=== PATIENT | female | born 1985 | race Caucasian/White ===

== ENCOUNTER 2017-09-29 21:44 | Emergency (ER) | payer BC, OTHER ==
[2017-09-29 21:47] VITALS: BMI 27.3
[2017-09-29 21:49] VITALS: BP 111/59; PULSE 67; TEMP 98
[2017-09-29 21:53] VITALS: RESP 17; O2SAT 98
[2017-09-29] MEDS ORDERED: Amoxicillin-Clav 875-125 mg Tab PO STA (22:18)
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
== END 2017-09-29 23:05 | disposition home or self-care (01) ==
LOC: ED 21:44
DX: K11.20 Sialoadenitis, unspecified (principal)
CPT/HCPCS: 96372; 99282; J1885

== ENCOUNTER 2018-02-14 22:55 | Observation (INO) | payer BC ==
[2018-02-14 22:55] VITALS: BMI 27.3
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
[2018-02-14] MEDS ORDERED: Glucagon Recombinant 1 mg Inj IV STA (23:46)
[2018-02-15 00:20] LABS: HEMOGLOBIN 12.6 g/dL (12.0-16.0); MEAN CELL VOLUME 89.6 fl (80.0-105.0); MEAN CORPUSCULAR HEMOGLOBIN 29.6 pg (25.0-35.0); MEAN CORPUSCULAR HGB CONC 33.1 g/dl (31.0-37.0); MEAN PLATELET VOLUME 10.2 fl (7.0-11.0); RBC 4.25 10^6/uL (3.5-6.1); RED CELL DISTRIBUTION WIDTH 13.4 % (11.5-14.5); WHITE BLOOD COUNT 7.4 10^3/ul (4.5-11.0)
[2018-02-15 00:33] LABS: ALB/GLOB RATIO 1.3 (1.1-1.8); CALCIUM 9.2 mg/dL (8.4-10.5)
--- NOTE | 2018-02-15 02:21 | CT ---
EXAM: CT Chest Without Intravenous Contrast EXAM DATE/TIME: 02/14/2018 11:51 PM CLINICAL HISTORY: The patient age is 32 years old and is female; Signs and symptoms; Shortness of breath; Additional info: R/O food impaction Facility exam id and description: Ct chests chest w/o contrast TECHNIQUE: Axial computed tomography images of the chest without intravenous contrast. All CT scans at this facility use one or more dose reduction techniques, viz.: automated exposure control; ma/kV adjustment per patient size (including targeted exams where dose is matched to indication; i.e. head); or iterative reconstruction technique. Coronal and sagittal reformatted images were created and reviewed. COMPARISON: No relevant prior studies available. FINDINGS: Lungs: There is biapical parenchymal scarring. Otherwise, there is no confluent infiltrate. Within the right middle lobe, there is a sheridan-fissural nodule measuring 6 mm on series 4 image 64. Pleural space: No pneumothorax. No significant effusion. Heart: There is mild cardiomegaly. There is a small herniation of abdominal fat into the region of the pericardial fat anteriorly. Fluid is seen in the superior pericardial recesses. Mediastinum: There is a small hiatal hernia. Bones/joints: Mild degenerative changes are identified within the thoracic spine. Vasculature: No thoracic aortic aneurysm. Lymph nodes: Scattered mediastinal lymph nodes are identified, a few which are enlarged. One of the enlarged lymph nodes is identified within the superior mediastinum measuring 1.3 x 1.1 cm. These lymph nodes are nonspecific as to etiology. Evaluation of hilar lymph nodes is limited by the absence of intravenous contrast. IMPRESSION: 1. There is biapical parenchymal scarring. Otherwise, there is no confluent infiltrate. 2. Within the right middle lobe, there is a sheridan-fissural nodule measuring 6 mm. A follow-up CT in 12 months is recommended. 3. There is a small hiatal hernia. 4. There is mild cardiomegaly. 5. Scattered mediastinal lymph nodes are identified, a few which are enlarged. These lymph nodes are nonspecific as to etiology. 6. Additional CT findings described above.
--- NOTE | 2018-02-15 02:27 | CT ---
EXAM: CT Neck Without Intravenous Contrast EXAM DATE/TIME: 02/14/2018 11:48 PM CLINICAL HISTORY: The patient age is 32 years old and is female; Signs and symptoms; Dyspnea / difficulty breathing; Additional info: Food impaction Facility exam id and description: Ct necks neck soft tissue w/o contrast TECHNIQUE: Axial computed tomography images of the neck without intravenous contrast. All CT scans at this facility use one or more dose reduction techniques, viz.: automated exposure control; ma/kV adjustment per patient size (including targeted exams where dose is matched to indication; i.e. head); or iterative reconstruction technique. Coronal and sagittal reformatted images were created and reviewed. COMPARISON: No relevant prior studies available. FINDINGS: Oropharynx: No significant tonsillar enlargement. Hypopharynx: No acute abnormality. Larynx: Normal epiglottis. Trachea: No acute abnormality. Retropharyngeal space: No acute abnormality. Submandibular/parotid glands: Glands are normal in size. Thyroid: No enlarged or calcified nodules. Bones/joints: There is mild reversal of the lordotic curvature of the cervical spine. Spondylosis is visualized at C5-6 and C6-7. Soft tissues: No significant swelling of the soft tissues of the neck. Vasculature: Limited evaluation without intravenous contrast. Lymph nodes: Scattered small cervical lymph nodes are identified, without significant cervical lymphadenopathy. Lung apices: Unremarkable as visualized. IMPRESSION: 1. No acute abnormality on this noncontrast CT neck. 2. Incidental/non-acute findings are described above.
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
[2018-02-15] MEDS ORDERED: Sodium Chloride 0.9% 1,000 ML IV SCH (04:45)
[2018-02-15 08:32] LABS: BASO # 0.02 K/mm3 (0.0-2.0); BASO % 0.3 % (0.0-3.0); EOS # 0.2 (0.0-0.7); GRAN # 4.25 (1.4-6.5); GRAN % 62.9 % (50.0-68.0); HEMOGLOBIN 12.9 g/dL (12.0-16.0); LYMPH # 1.8 (1.2-3.4); LYMPH % 25.9 % (22.0-35.0); MEAN CELL VOLUME 88.9 fl (80.0-105.0); MEAN CORPUSCULAR HEMOGLOBIN 29.2 pg (25.0-35.0); MEAN CORPUSCULAR HGB CONC 32.8 g/dl (31.0-37.0); MEAN PLATELET VOLUME 10.3 fl (7.0-11.0); MONO # 0.5 (0.1-0.6); MONO % 7.9 % (1.0-6.0); RBC 4.42 10^6/uL (3.5-6.1); RED CELL DISTRIBUTION WIDTH 13.3 % (11.5-14.5); WHITE BLOOD COUNT 6.8 10^3/ul (4.5-11.0)
[2018-02-15 08:36] LABS: INR 0.96 (0.93-1.08); PARTIAL THROMBOPLASTIN TIME 31.1 Seconds (25.1-36.5)
[2018-02-15 08:42] LABS: ALB/GLOB RATIO 1.4 (1.1-1.8); ALBUMIN 4.1 g/dL (3.0-4.8); ALT/SGPT 33 U/L (7-56); AST/SGOT 26 U/L (14-36); BLOOD UREA NITROGEN 16 mg/dL (7-21); CALCIUM 9.3 mg/dL (8.4-10.5); GFR AFRICAN-AMERICAN > 60; GFR NON-AFRICAN AMERICAN > 60
--- NOTE | 2018-02-15 12:16 | CP.PCM.DIS ---
<Magaly Hilliard - Last Filed: 02/15/18 13:50> Provider - Provider Date of Admission: 02/15/18 03:28 Attending physician: Brigido Menjivar MD Primary care physician: Leigha Stoll MD Consults: GI: Wei Time Spent in preparation of Discharge (in minutes): 32 Hospital Course - Lab Results Lab Results: Most Recent Lab Values WBC 6.8 10^3/ul (4.5-11.0) 02/15/18 08:15 RBC 4.42 10^6/uL (3.5-6.1) 02/15/18 08:15 Hgb 12.9 g/dL (12.0-16.0) 02/15/18 08:15 Hct 39.3 % (36.0-48.0) 02/15/18 08:15 MCV 88.9 fl (80.0-105.0) 02/15/18 08:15 MCH 29.2 pg (25.0-35.0) 02/15/18 08:15 MCHC 32.8 g/dl (31.0-37.0) 02/15/18 08:15 RDW 13.3 % (11.5-14.5) 02/15/18 08:15 Plt Count 214 10^3/uL (120.0-450.0) 02/15/18 08:15 MPV 10.3 fl (7.0-11.0) 02/15/18 08:15 Gran % 62.9 % (50.0-68.0) 02/15/18 08:15 Lymph % (Auto) 25.9 % (22.0-35.0) 02/15/18 08:15 [place] % (Auto) 7.9 % (1.0-6.0) H 02/15/18 08:15 Eos % (Auto) 3.0 % (1.5-5.0) 02/15/18 08:15 Baso % (Auto) 0.3 % (0.0-3.0) 02/15/18 08:15 Gran # 4.25 (1.4-6.5) 02/15/18 08:15 Lymph # (Auto) 1.8 (1.2-3.4) 02/15/18 08:15 [place] # (Auto) 0.5 (0.1-0.6) 02/15/18 08:15 Eos # (Auto) 0.2 (0.0-0.7) 02/15/18 08:15 Baso # (Auto) 0.02 K/mm3 (0.0-2.0) 02/15/18 08:15 PT 11.0 SECONDS (9.4-12.5) 02/15/18 08:15 INR 0.96 (0.93-1.08) 02/15/18 08:15 APTT 31.1 Seconds (25.1-36.5) 02/15/18 08:15 Sodium 140 mmol/L (132-148) 02/15/18 08:15 Potassium 4.1 mmol/L (3.6-5.0) 02/15/18 08:15 Chloride 106 mmol/L (98-107) 02/15/18 08:15 Carbon Dioxide 26 mmol/L (21-33) 02/15/18 08:15 Anion Gap 12 (10-20) 02/15/18 08:15 BUN 16 mg/dL (7-21) 02/15/18 08:15 Creatinine 0.8 mg/dl (0.7-1.2) 02/15/18 08:15 Est GFR ( Amer) > 60 02/15/18 08:15 Est GFR (Non-Af Amer) > 60 02/15/18 08:15 Random Glucose 92 mg/dL (70-110) 02/15/18 08:15 Calcium 9.3 mg/dL (8.4-10.5) 02/15/18 08:15 Total Bilirubin 0.3 mg/dL (0.2-1.3) 02/15/18 08:15 AST 26 U/L (14-36) 02/15/18 08:15 ALT 33 U/L (7-56) 02/15/18 08:15 Alkaline Phosphatase 52 U/L (38-126) 02/15/18 08:15 Total Protein 7.1 g/dL (5.8-8.3) 02/15/18 08:15 Albumin 4.1 g/dL (3.0-4.8) 02/15/18 08:15 Globulin 3.0 gm/dL 02/15/18 08:15 Albumin/Globulin Ratio 1.4 (1.1-1.8) 02/15/18 08:15 - Hospital Course Hospital Course: History of Present Illness: This patient is a 32 year old female with a PMHx of CHF (Diagnosed at 17 years old) who presents complaining of sensation in her throat after eating pot roast last night at about 8pm. Patient complains of dysphagia and odynophagia at this time. She denies any fevers, chills, headache, chest pain, SOB, palpitations, abdominal pain, nausea, vomiting, changes in bowel habits or urinary symptoms. She has never had symptoms like this before. She attempted to drink water with aloe in it to relieve the sensation without any success. Hospital Course: Patient was admitted to Med/Surg. She was given Glucagon x 1. Neck soft tissue CT showed no acute abnormality, no significant swelling of soft tissue in neck.GI was consulted. Recommending continuation of PPI and Carafate as needed. Patient to follow up outpatient for EGD. CT chest showed biapical parencymal scarring, right middle lobe sheridan-fissural nodule measuring 6 mm, small hiatal hernia (see full report). Patient admits to smoking history but quit over a month ago. Recommending repeat CT chest in 12 months. Patient presented with acute kidney injury, improved with IV hydration. Likely secondary to herbalife supplements. Advised patient should discontinue taking this supplementation. Patients diet was advanced, she tolerated well. On day of discharge, patient was doing well. Denies headaches, dizziness, cp, palpitations, sob, abdominal pain, urinary symptoms. Discharge instructions were given. All questions and concerns were addressed. Discharge Medications: Protonix 40mg PO QAM Carafate 1 tab QID prn GI distress Discharge Diagnosis: Globus Pharyngis likely 2/2 GERD Discharge Exam - Head Exam Head Exam: ATRAUMATIC, NORMAL INSPECTION, NORMOCEPHALIC - Eye Exam Eye Exam: EOMI, Normal appearance Pupil Exam: NORMAL ACCOMODATION, PERRL - ENT Exam ENT Exam: Mucous Membranes Moist - Neck Exam Neck exam: Full Rom - Respiratory Exam Respiratory Exam: Clear to PA & Lateral, NORMAL BREATHING PATTERN, UNREMARKABLE. absent: Rales, Rhonchi, Wheezes - Cardiovascular Exam Cardiovascular Exam: REGULAR RHYTHM, +S1, +S2 - GI/Abdominal Exam GI & Abdominal Exam: Normal Bowel Sounds, Soft, Unremarkable. absent: Guarding , Rebound, Rigid, Tenderness - Extremities Exam Extremities exam: normal inspection - Neurological Exam Neurological exam: Alert, CN II-XII Intact, Normal Gait, Oriented x3 - Psychiatric Exam Psychiatric exam: Normal Affect, Normal Mood - Skin Skin Exam: Dry, Normal Color, Warm Discharge Plan - Discharge Medications Prescriptions: Pantoprazole [Protonix EC Tab] 20 mg PO DAILY #14 ect Sucralfate [Carafate] 1 gm PO QID PRN #24 tab PRN Reason: Gi Distress - Follow Up Plan Condition: GOOD Disposition: HOME/ ROUTINE Instructions: Folliculitis (DC), Dysphagia (DC) Additional Instructions: 1. Recommend to follow up with GI, Dr. Carvajal and Upper endoscopy as outpatient 2. You have a 6mm pulmonary nodule on chest CT. Recommend to repeat Chest CT in 1 year. 3. Take Protonix every morning before breakfast. 4. Take Carafate as needed for GI upset. Referrals: Tye Carvajal MD [Medical Doctor] - Leigha Stoll [Primary Care Provider] - [facility] [Outside] <Brigido Menjivar - Last Filed: 02/15/18 15:27> Provider - Provider Date of Admission: 02/15/18 03:28 Attending physician: Brigido Menjivar MD Primary care physician: Leigha Stoll MD Hospital Course - Lab Results Lab Results: Most Recent Lab Values WBC 6.8 10^3/ul (4.5-11.0) 02/15/18 08:15 RBC 4.42 10^6/uL (3.5-6.1) 02/15/18 08:15 Hgb 12.9 g/dL (12.0-16.0) 02/15/18 08:15 Hct 39.3 % (36.0-48.0) 02/15/18 08:15 MCV 88.9 fl (80.0-105.0) 02/15/18 08:15 MCH 29.2 pg (25.0-35.0) 02/15/18 08:15 MCHC 32.8 g/dl (31.0-37.0) 02/15/18 08:15 RDW 13.3 % (11.5-14.5) 02/15/18 08:15 Plt Count 214 10^3/uL (120.0-450.0) 02/15/18 08:15 MPV 10.3 fl (7.0-11.0) 02/15/18 08:15 Gran % 62.9 % (50.0-68.0) 02/15/18 08:15 Lymph % (Auto) 25.9 % (22.0-35.0) 02/15/18 08:15 [place] % (Auto) 7.9 % (1.0-6.0) H 02/15/18 08:15 Eos % (Auto) 3.0 % (1.5-5.0) 02/15/18 08:15 Baso % (Auto) 0.3 % (0.0-3.0) 02/15/18 08:15 Gran # 4.25 (1.4-6.5) 02/15/18 08:15 Lymph # (Auto) 1.8 (1.2-3.4) 02/15/18 08:15 [place] # (Auto) 0.5 (0.1-0.6) 02/15/18 08:15 Eos # (Auto) 0.2 (0.0-0.7) 02/15/18 08:15 Baso # (Auto) 0.02 K/mm3 (0.0-2.0) 02/15/18 08:15 PT 11.0 SECONDS (9.4-12.5) 02/15/18 08:15 INR 0.96 (0.93-1.08) 02/15/18 08:15 APTT 31.1 Seconds (25.1-36.5) 02/15/18 08:15 Sodium 140 mmol/L (132-148) 02/15/18 08:15 Potassium 4.1 mmol/L (3.6-5.0) 02/15/18 08:15 Chloride 106 mmol/L (98-107) 02/15/18 08:15 Carbon Dioxide 26 mmol/L (21-33) 02/15/18 08:15 Anion Gap 12 (10-20) 02/15/18 08:15 BUN 16 mg/dL (7-21) 02/15/18 08:15 Creatinine 0.8 mg/dl (0.7-1.2) 02/15/18 08:15 Est GFR ( Amer) > 60 02/15/18 08:15 Est GFR (Non-Af Amer) > 60 02/15/18 08:15 Random Glucose 92 mg/dL (70-110) 02/15/18 08:15 Calcium 9.3 mg/dL (8.4-10.5) 02/15/18 08:15 Total Bilirubin 0.3 mg/dL (0.2-1.3) 02/15/18 08:15 AST 26 U/L (14-36) 02/15/18 08:15 ALT 33 U/L (7-56) 02/15/18 08:15 Alkaline Phosphatase 52 U/L (38-126) 02/15/18 08:15 Total Protein 7.1 g/dL (5.8-8.3) 02/15/18 08:15 Albumin 4.1 g/dL (3.0-4.8) 02/15/18 08:15 Globulin 3.0 gm/dL 02/15/18 08:15 Albumin/Globulin Ratio 1.4 (1.1-1.8) 02/15/18 08:15 Attending/Attestation - Attestation I have personally seen and examined this patient.: Yes I have fully participated in the care of the patient.: Yes I have reviewed all pertinent clinical information, including history, physical exam and plan: Yes Notes (Text): 02/15/18 15:25 Medical record note made by the resident after discussion with my direction and input after the patient was personally seen and examined by me. I have reviewed the chart and agree that the record accurately reflects by personal performance of the history, physical exam, data review, and medical decision-making, in the course for the patient. I have also personally directed the plan of care. 32 yrs old female was admitted with dysphagia, no structural lesion on CT scan, she is able to tolerate food.Symptoms could be due to esophagititis/GERD, started on PPI.She will be discharged home and will follow up with PCP and GI. JEOVANY is resolved.Renal functions are back to normal. Incidental lung nodule 6 mm, will need repeat CT chest in one year.She has been advised not to smoke . Management plan was discussed in detail with patient. Education was provided.
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
[2018-02-15] MEDS ORDERED: Sucralfate 1 gm/10 ml Oral Susp UD PO SCH (14:00)
[2018-02-15 14:45] VITALS: BP 102/72; PULSE 72; RESP 18; TEMP 97.8; O2SAT 100
[2018-02-16] MEDS ORDERED: Pantoprazole 40 mg EC Tab PO SCH (06:00)
== END 2018-02-15 15:01 | disposition home or self-care (01) ==
LOC: ED 22:55 → ERH 02-15 03:28 → 5RSO 02-15 05:34
PROVIDERS: ADMIT Internal Medicine; ATTEND Internal Medicine
DX: K21.9 Gastro-esophageal reflux disease without esophagitis (principal); R13.10 Dysphagia, unspecified; I50.9 Heart failure, unspecified; K44.9 Diaphragmatic hernia without obstruction or gangrene; N17.9 Acute kidney failure, unspecified; Z87.891 Personal history of nicotine dependence; R91.1 Solitary pulmonary nodule; Z91.410 Personal history of adult physical and sexual abuse
CPT/HCPCS: 36415; 70490; 71250; 80053; 85025; 85027; 85610; 85730; 96361; 96374; 99285; J1610; J7040

== ENCOUNTER 2018-05-23 22:24 | Emergency (ER) | payer BC ==
[2018-05-23 22:49] VITALS: RESP 18; TEMP 97.6; BMI 26.6
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
[2018-05-23 23:13] LABS: INR 0.96; PARTIAL THROMBOPLASTIN TIME 29.8 Seconds (25.1-36.5); PROTHROMBIN TIME 10.9 SECONDS (9.4-12.5)
[2018-05-23 23:15] LABS: ALB/GLOB RATIO 1.4 (1.1-1.8); ALBUMIN 3.9 g/dL (3.0-4.8); ALT/SGPT 14 U/L (7-56); AST/SGOT 16 U/L (14-36); BLOOD UREA NITROGEN 12 mg/dL (7-21); CALCIUM 9.4 mg/dL (8.4-10.5); GFR AFRICAN-AMERICAN > 60; GFR NON-AFRICAN AMERICAN > 60
[2018-05-23 23:20] LABS: BASO # 0.04 K/mm3 (0.0-2.0); BASO % 0.5 % (0.0-3.0); EOS # 0.2 (0.0-0.7); EOS % 2.2 % (1.5-5.0); GRAN # 4.24 (1.4-6.5); GRAN % 54.6 % (50.0-68.0); HEMOGLOBIN 13.6 g/dL (12.0-16.0); LYMPH # 2.6 (1.2-3.4); LYMPH % 33.3 % (22.0-35.0); MEAN CELL VOLUME 88.3 fl (80.0-105.0); MEAN CORPUSCULAR HEMOGLOBIN 30.1 pg (25.0-35.0); MEAN CORPUSCULAR HGB CONC 34.1 g/dl (31.0-37.0); MEAN PLATELET VOLUME 10.5 fl (7.0-11.0); MONO # 0.7 (0.1-0.6); MONO % 9.4 % (1.0-6.0); RBC 4.52 10^6/uL (3.5-6.1); RED CELL DISTRIBUTION WIDTH 12.6 % (11.5-14.5); WHITE BLOOD COUNT 7.8 10^3/ul (4.5-11.0)
[2018-05-23 23:26] LABS: B-TYPE NATRIURETIC PEPTIDE 74.3 pg/mL (0-450); TROPONIN I < 0.01 ng/mL
[2018-05-24 01:55] VITALS: BP 129/72; PULSE 82; O2SAT 100
--- NOTE | 2018-05-24 09:10 | RAD ---
Date of service: 05/23/2018 HISTORY: chest pain COMPARISON: No prior. FINDINGS: LUNGS: No active pulmonary disease. PLEURA: No significant pleural effusion identified, no pneumothorax apparent. CARDIOVASCULAR: Normal. OSSEOUS STRUCTURES: No significant abnormalities. VISUALIZED UPPER ABDOMEN: Normal. OTHER FINDINGS: None. IMPRESSION: No active disease.
--- NOTE | 2018-05-24 15:19 | CARD ---
APPROVED REPORT Date of service: 05/23/2018 EKG Measurement Heart [id number] <Conclusion> Normal sinus rhythm Normal ECG
== END 2018-05-24 01:45 | disposition home or self-care (01) ==
LOC: ED 22:24
DX: R07.9 Chest pain, unspecified (principal); I50.9 Heart failure, unspecified
CPT/HCPCS: 71045; 80053; 82550; 83615; 83880; 84484; 85025; 85610; 85730; 93005; 96374; 99285; J1885

== ENCOUNTER 2018-05-24 18:07 | Emergency (ER) | payer BC ==
[2018-05-24 18:08] VITALS: BMI 27.3
[2018-05-24 18:46] VITALS: RESP 18
[2018-05-24 19:58] LABS: BASO % 0.3 % (0.0-3.0); EOS % 1.8 % (1.5-5.0); GRAN # 4.41 (1.4-6.5); GRAN % 58.2 % (50.0-68.0); HEMOGLOBIN 13.5 g/dL (12.0-16.0); LYMPH % 30.6 % (22.0-35.0); MEAN CELL VOLUME 88.4 fl (80.0-105.0); MEAN CORPUSCULAR HEMOGLOBIN 29.5 pg (25.0-35.0); MEAN CORPUSCULAR HGB CONC 33.3 g/dl (31.0-37.0); MEAN PLATELET VOLUME 10.2 fl (7.0-11.0); MONO % 9.1 % (1.0-6.0); RBC 4.58 10^6/uL (3.5-6.1); RED CELL DISTRIBUTION WIDTH 12.7 % (11.5-14.5); WHITE BLOOD COUNT 7.6 10^3/ul (4.5-11.0)
[2018-05-24 19:59] LABS: BASO # 0.02 K/mm3 (0.0-2.0); EOS # 0.1 (0.0-0.7); LYMPH # 2.3 (1.2-3.4); MONO # 0.7 (0.1-0.6)
[2018-05-24 20:08] LABS: BLOOD UREA NITROGEN 12 mg/dL (7-21); GFR AFRICAN-AMERICAN > 60; GFR NON-AFRICAN AMERICAN > 60
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
[2018-05-24 20:09] LABS: CALCIUM 9.1 mg/dL (8.4-10.5)
[2018-05-24] MEDS ORDERED: Iodixanol 320 MG/ML 100 ML BOTTLE IV ONE (20:10)
[2018-05-24 20:11] LABS: ALB/GLOB RATIO 1.2 (1.1-1.8); B-TYPE NATRIURETIC PEPTIDE 106 pg/mL (0-450)
[2018-05-24 20:12] LABS: ALT/SGPT 32 U/L (7-56); AST/SGOT 21 U/L (14-36); TROPONIN I < 0.01 ng/mL
[2018-05-24 21:22] VITALS: BP 114/75; PULSE 78; O2SAT 100
[2018-05-24 22:48] VITALS: TEMP 98.3
--- NOTE | 2018-05-25 07:55 | CT ---
Date of service: 05/24/2018 PROCEDURE: CT Chest with contrast (Pulmonary Angiogram) HISTORY: chest pain, r/o PE COMPARISON: 02/15/2018 TECHNIQUE: Axial computed tomography images were obtained of the chest in the pulmonary arterial phase of enhancement. Coronal and sagittal reformatted images were created and reviewed. Intravenous contrast dose: 100 cc of Visipaque Radiation dose: Total exam DLP = 354 mGy-cm. This CT exam was performed using one or more of the following dose reduction techniques: Automated exposure control, adjustment of the mA and/or kV according to patient size, and/or use of iterative reconstruction technique. FINDINGS: PULMONARY ARTERIES: Unremarkable. No pulmonary embolism. AORTA: No acute findings. No thoracic aortic aneurysm. LUNGS: Unremarkable. No nodule, mass or pulmonary consolidation. There is a small triangular-shaped density in the right middle lobe adjacent to the minor fissure. This is of doubtful significance. This is unchanged. PLEURAL SPACES: Unremarkable. No effusion or pneumothorax. HEART: Unremarkable. No cardiomegaly. No significant pericardial effusion. LYMPH NODES: No lymphadenopathy. BONES, CHEST WALL: Unremarkable. No fracture or destructive lesion OTHER FINDINGS: The report concurs with the preliminary [facility] report IMPRESSION: Unremarkable CT pulmonary angiogram. No pulmonary embolus.
--- NOTE | 2018-05-25 08:26 | RAD ---
Date of service: 05/24/2018 HISTORY: SOB COMPARISON: 05/23/2018. FINDINGS: LUNGS: The lungs are well inflated and clear. PLEURA: No significant pleural effusion identified, no pneumothorax apparent. CARDIOVASCULAR: Normal. OSSEOUS STRUCTURES: No significant abnormalities. VISUALIZED UPPER ABDOMEN: Normal. OTHER FINDINGS: None. IMPRESSION: No active pulmonary disease.
--- NOTE | 2018-05-25 15:08 | CARD ---
APPROVED REPORT Date of service: 05/24/2018 EKG Measurement Heart [id number] [id number] <Conclusion> Normal sinus rhythm Low voltage QRS Borderline ECG
== END 2018-05-24 22:41 | disposition left against medical advice (07) ==
LOC: ED 18:07
DX: R07.9 Chest pain, unspecified (principal); R06.02 Shortness of breath; I50.9 Heart failure, unspecified
CPT/HCPCS: 71045; 71275; 80053; 82550; 83615; 83735; 83880; 84484; 85025; 93005; 99283; Q9967